=== PATIENT | female | born 1975 | race Caucasian/White ===

== ENCOUNTER 2024-09-24 22:46 | Emergency (ER) | payer MEDICAID ==
[~2024-09-24] VITALS: Ht 170.2 cm; Wt 73.0 kg
[2024-09-24 22:56] VITALS: BP 122/91; PULSE 85; RESP 16; TEMP 37.1; O2SAT 99
[2024-09-25] MEDS: TETANUS, DIPHTHERIA, PERTUSSIS VAC/PF 0.5ML (>10YR OLD) IM ONE (02:07)
[2024-09-25] MEDS: KETOROLAC 15MG/ML VIAL IM ONE (02:08)
[2024-09-25] MEDS ORDERED: AMOX1TAB16 MT (02:41)
[2024-09-25] MEDS: BACITRACIN ZINC OINT UDPKT TOP ONE (03:14)
[2024-09-25] MEDS: LIDOCAINE HCL/PF 1% 10 MG/ML 5ML VIAL INFIL ONE (03:14)
== END 2024-09-25 05:32 | disposition home or self-care (01) ==
LOC: ER 22:46
DX: T14.8XXA Other injury of unspecified body region, initial encounter (principal); I10 Essential (primary) hypertension; Z88.1 Allergy status to other antibiotic agents; W54.0XXA Bitten by dog, initial encounter; Y93.89 Activity, other specified; Y92.89 Other specified places as the place of occurrence of the external cause; Y99.8 Other external cause status
CPT/HCPCS: 99284; 73502; 90715; 90471; 96372; J1885; J2003; Z7610 ×3

== ENCOUNTER 2024-09-28 14:57 | Emergency (ER) | payer MEDICAID ==
[~2024-09-28] VITALS: Ht 182.9 cm; Wt 61.2 kg
[~2024-09-28 14:57] MED LIST: AMOX1TAB16 MT
[2024-09-28 15:09] VITALS: O2SAT 100
[2024-09-28 16:21] VITALS: BP 116/85; PULSE 93; RESP 18; TEMP 37.1; O2SAT 98
== END 2024-09-28 16:37 | disposition home or self-care (01) ==
LOC: ER 14:57
DX: Z48.00 Encounter for change or removal of nonsurgical wound dressing (principal); I10 Essential (primary) hypertension; Z59.01 Sheltered homelessness; Z88.1 Allergy status to other antibiotic agents
CPT/HCPCS: 99281

== ENCOUNTER 2025-02-12 19:48 | Emergency (ER) | payer MEDICAID ==
[~2025-02-12] VITALS: Ht 177.8 cm; Wt 77.0 kg
[2025-02-12 19:56] VITALS: BP 126/42; PULSE 80; RESP 18; TEMP 36.8; O2SAT 99
== END 2025-02-12 22:54 | disposition left against medical advice (07) ==
LOC: ER 19:57
DX: R55 Syncope and collapse (principal); M86.9 Osteomyelitis, unspecified; I10 Essential (primary) hypertension; Z88.1 Allergy status to other antibiotic agents; Z79.899 Other long term (current) drug therapy
CPT/HCPCS: 99283